=== PATIENT | female | born 1965 | race Caucasian/White ===

== ENCOUNTER 2019-03-04 10:21 | Outpatient (CLI) | payer MEDICAID ==
[2019-03-04 18:45] LABS: BASOPHILS # (AUTO) 0.1 10^3/uL (0.0-0.1); BASOPHILS % (AUTO) 0.7 %; EOSINOPHILS # (AUTO) 0.2 10^3/uL (0.0-0.7); EOSINOPHILS % (AUTO) 2.7 %; HGB - HEMOGLOBIN 13.5 g/dL (12.0-16.0); LYMPHOCYTES # (AUTO) 1.6 10^3/uL (1.5-3.5); LYMPHOCYTES % (AUTO) 20.8 %; MEAN CORPUSCULAR HEMOGLOBIN 28.8 pg (27.0-31.0); MEAN CORPUSCULAR HGB CONC 32.1 g/dL (32.0-36.0); MEAN CORPUSCULAR VOLUME 89.6 fL (81.0-99.0); MEAN PLATELET VOLUME 10.2 fL (7.9-10.8); MONOCYTES # (AUTO) 0.7 10^3/uL (0.0-1.0); MONOCYTES % (AUTO) 8.5 %; NEUTROPHILS # (AUTO) 5.1 10^3/uL (1.5-6.6); NEUTROPHILS % (AUTO) 66.9 %; PLT - PLATELET COUNT 451 10^3/uL (130-450); RED BLOOD COUNT 4.69 10^6/uL (4.20-5.40); RED CELL DISTRIBUTION WIDTH 13.2 % (12.0-15.0); WHITE BLOOD COUNT 7.7 x10^3/uL (4.8-10.8)
[2019-03-04 19:12] LABS: ALBUMIN 4.1 g/dL (3.2-5.5); ALBUMIN/GLOBULIN RATIO 1.3 (1.0-2.2); ALKALINE PHOSPHATASE 64 IU/L (42-121); ALT ALANINE AMINOTRANSFERASE 14 IU/L (10-60); AST ASPARTATE AMINOTRANSFERASE 17 IU/L (10-42); BILIRUBIN,TOTAL 1.1 mg/dL (0.2-1.0); BUN - BLOOD UREA NITROGEN 12 mg/dL (6-20); CALCIUM 8.8 mg/dL (8.5-10.3); CARBON DIOXIDE - CO2 25 mmol/L (21-32); CHLORIDE 98 mmol/L (101-111); CHOL/HDL RATIO 3.7 (<4.4); CHOLESTEROL 213 mg/dL; CREATININE 0.7 mg/dL (0.4-1.0); GFR - MDRD 88 (>89); GLUCOSE 105 mg/dL (70-100); HDL CHOLESTEROL 58 mg/dL; LDL CHOLESTEROL,CALCULATED 132 mg/dL; LDL/HDL RATIO 2.3 (<4.4); SODIUM 135 mmol/L (135-145); TOTAL PROTEIN 7.3 g/dL (6.7-8.2); VLDL CHOLESTEROL 23 mg/dL
[2019-03-04 19:18] LABS: RHEUMATOID FACTOR NEGATIVE (Negative)
[2019-03-04 19:21] LABS: CRP - C-REACTIVE PROTEIN < 1.0 mg/dL (0-1.0)
[2019-03-06 11:28] LABS: ANA SCREEN NEGATIVE (NEGATIVE)
== END 2019-03-04 23:59 | disposition home or self-care (01) ==
LOC: LAB.N 10:21
PROVIDERS: ATTEND Nurse Practitioner Gerontology
DX: Z00.00 Encounter for general adult medical examination without abnormal findings (principal); G89.29 Other chronic pain
CPT/HCPCS: 36415; 80053; 80061; 83721; 84443; 85025; 85651; 86038; 86140; 86200; 86430

== ENCOUNTER 2020-01-02 10:59 | Outpatient (CLI) | payer MEDICAID ==
--- NOTE | 2020-01-02 11:46 | XRAY Report ---
PROCEDURE: Ribs 2 View RT INDICATIONS: RIGHT SIDED RIB PAIN TECHNIQUE: 3 views of the right ribs were acquired. COMPARISON: None FINDINGS: Surgical changes and devices: None. Bones and chest wall: No fractures or dislocations. No suspicious bony lesions. Overlying soft tis sues appear unremarkable. Lungs and pleura: The visualized lung appears clear. No pleural effusions or pneumothorax are visib le. IMPRESSION: No right-sided rib fractures identified. Reviewed by: Johnny Mackey on 01/02/2020 11:44 AM [facility] Approved by: Johnny Mackey on 01/02/2020 11:44 AM [facility] Station ID: [id number]
== END 2020-01-02 23:59 | disposition home or self-care (01) ==
LOC: DI.WCP 10:59
PROVIDERS: ATTEND Physician Assistant
DX: R07.81 Pleurodynia (principal)

== ENCOUNTER 2020-02-04 13:08 | Outpatient (CLI) | payer MEDICAID ==
--- NOTE | 2020-02-04 13:58 | CT Report ---
PROCEDURE: CHEST WO INDICATIONS: RIB PAIN, RT TECHNIQUE: Noncontrast 5 mm thick sections acquired from the pulmonary apices to the posterior costophrenic angl es. 7 mm thick coronal and sagittal MIP reformats were then acquired. For radiation dose reduction, the following was used: automated exposure control, adjustment of mA and/or kV according to patient size. COMPARISON: None FINDINGS: Image quality: Excellent. Lungs and pleura: No acute air space opacities. 4 mm subpleural nodule within the right upper lobe l aterally (series 3 image 19). 2 mm diameter nodule within the left upper lobe laterally (series 3 perfecto ge 31). 3 mm nodule within the left upper lobe anteriorly (series 3 image 28). No pleural effusions o r pneumothorax. Central and peripheral airways are patent and normal in caliber. Mediastinum: Heart size is normal. No pericardial effusion. No mediastinal adenopathy by size crit eria. Thoracic aorta and central pulmonary arteries are normal in size. Esophagus is normal in lizet goran. No hiatal hernia. Bones and chest wall: Linear lucency traverses the right anterior sixth rib which demonstrates mild s urrounding callus. No vertebral body compression fractures. No axillary or supraclavicular adenopath y by size criteria. The thyroid is normal in size. Abdomen: Visualized upper abdominal solid organs and bowel loops appear normal in the absence of con trast. IMPRESSION: 1. Healing right anterior sixth rib fracture. 2. Bilateral pulmonary nodules; follow-up is recommended as below. Multiple nodules size: <6 mm * low risk patients: no routine follow-up * high risk patients: optional CT at 12 months Reviewed by: Nicanor Garnett MD on 02/04/2020 1:57 PM PST Approved by: Nicanor Garnett MD on 02/04/2020 1:57 PM PST Station ID: [id number]
== END 2020-02-04 13:09 | disposition home or self-care (01) ==
LOC: DI 13:08
PROVIDERS: ATTEND Physician Assistant
DX: S22.31XA Fracture of one rib, right side, initial encounter for closed fracture (principal); R91.8 Other nonspecific abnormal finding of lung field
CPT/HCPCS: 71250

== ENCOUNTER 2020-03-17 15:11 | Outpatient (CLI) | payer MEDICAID ==
[2020-03-17] MEDS ORDERED: GADOBUTROL 7.5 MMOL/7.5 ML VIAL ONE (16:16)
[2020-03-17] MEDS ORDERED: GADOBUTROL 7.5 MMOL/7.5 ML VIAL IVP ONE (16:52)
--- NOTE | 2020-03-17 17:50 | MRI Report ---
PROCEDURE: Brain W/WO INDICATIONS: VISION CHANGES, MIGRAINES CONTRAST: IV CONTRAST: Gadavist ml: 6 TECHNIQUE: Noncontrast axial T1 spin echo, axial T2 fast spin echo, sagittal and axial FLAIR, coronal T2 fast sp in echo, axial gradient echo, axial diffusion and ADC through the brain. After the administration of contrast, axial and coronal T1 spin echo with fat saturation through the brain. COMPARISON: None. FINDINGS: Image quality: Excellent. CSF spaces: Basal cisterns are patent. No extra-axial fluid collections. Ventricles are normal in size and shape. Brain: No midline shift. No intracranial bleeds or masses. No abnormal intracranial enhancement. There is cerebral volume loss for age. There is periventricular white matter chronic small vessel is chemic change. The brainstem appears normal. Diffusion-weighted images demonstrate no acute ischemi c insults. No chronic ischemic insults. Normal intravascular flow voids are present. Skull and face: Calvarial marrow is normal in signal. Orbits appear normal. Sinuses: Paranasal sinus disease is seen, including air-fluid levels within the maxillary sinuses. Mi lder paranasal sinus disease is seen elsewhere. No significant abnormal fluid can be seen within the mastoid air cells or within the middle ear cavities. IMPRESSION: No significant intracranial abnormality is seen to explain the presenting history of hea daches. No masses or abnormal enhancement can be seen. Paranasal sinus disease is noted, including air-fluid levels within the maxillary sinuses. Reviewed by: Ascencion Jin MD on 03/17/2020 4:49 PM [place] Approved by: Ascencion Jin MD on 03/17/2020 4:[address] [facility] Station ID: [id number]
== END 2020-03-17 15:12 | disposition home or self-care (01) ==
LOC: DI 15:11
PROVIDERS: ATTEND Physician Assistant
DX: G43.909 Migraine, unspecified, not intractable, without status migrainosus (principal); H53.9 Unspecified visual disturbance; J32.9 Chronic sinusitis, unspecified
CPT/HCPCS: 70553; A9585

== ENCOUNTER 2020-04-26 12:49 | Outpatient (CLI) | payer MEDICAID ==
--- NOTE | 2020-05-04 09:28 | Mammography Report ---
BILATERAL DIGITAL SCREENING MAMMOGRAM 3D/2D: 04/26/2020 CLINICAL: Routine screening. No prior exams were available for comparison. There are scattered fibroglandular elements in both br easts. No significant masses, calcifications, or other findings are seen in either breast. IMPRESSION: NEGATIVE There is no mammographic evidence of malignancy. A 1 year screening mammogram is recommended. This exam was interpreted at Station ID: [id number]. NOTE: For mammograms, a report in lay terms will be sent to the patient. Approximately 15% of breast malignancies will not be visualized mammographically. In the management of a palpable breast mass, a negative mammogram must not discourage biopsy of a clinically suspicious lesion. Electronically Signed By: Sedrick rubio/rachel:05/03/2020 13:55:58 ACR BI-RADS Category 1: Negative 3341F PARENCHYMAL PATTERN: (A) - The breast(s) demonstrate(s) scattered fibroglandular densities. BI-RADS CATEGORY: (1) - 1 RECOMMENDATION: (ANNUAL) - Recommend routine annual screening mammography. [id number] 1 year screening LATERALITY: (B)
== END 2020-04-26 12:50 | disposition home or self-care (01) ==
LOC: DI.N 12:49
PROVIDERS: ATTEND Internal Medicine
DX: Z12.31 Encounter for screening mammogram for malignant neoplasm of breast (principal)

== ENCOUNTER 2020-04-26 15:21 | Outpatient (CLI) | payer MEDICAID ==
--- NOTE | 2020-04-26 16:40 | DEXA Report ---
PROCEDURE: Dexa Spine and/or Hip INDICATIONS: POSTMENOPAUSAL TECHNIQUE: Dual energy x-ray absorptiometry (DXA) was performed on a [employer] System. Regions measur ed are the AP Spine, femoral neck, and if needed forearm. COMPARISON: None. FINDINGS: Lumbar Spine: Bone Mineral Density 1.248 g/cm/cm,T score 0.6, Left Hip: Bone Mineral Density 1.138 g/cm/cm,T score 1.0, Left Femoral Neck: Bone Mineral Density 1.06 to g/cm/cm, T score 1.2, (T score greater or equal to -1.0: NORMAL) (T score from -1.1 to -2.4: OSTEOPENIA) (T score less than or equal to -2.5 to: OSTEOPOROSIS) Impression: Normal bone mineral density. Patients with diagnosis of osteoporosis or osteopenia should have regular bone mineral density assess ment. For those eligible for Medicare, routine testing is allowed once every 2 years. Testing frequ ency can be increased for patients who have rapidly progressing disease or for those who are receivin g medical therapy to restore bone mass. Reviewed by: Thony Diaz MD on 04/26/2020 4:39 PM PDT Approved by: Thony Diaz MD on 04/26/2020 4:39 PM PDT Station ID: [id number]
== END 2020-04-26 15:22 | disposition home or self-care (01) ==
LOC: DI 15:21
PROVIDERS: ATTEND Internal Medicine
DX: Z78.0 Asymptomatic menopausal state (principal)

== ENCOUNTER 2020-06-04 12:39 | Outpatient (CLI) | payer MEDICAID ==
--- NOTE | 2020-06-07 13:08 | XRAY Report ---
* REVISED: THIS REPORT WAS ORIGINALLY SIGNED ON 06/04/2020 @ 1:41 PM. REPORT MOVED TO CORRECT ACCOUNT ON 06/08/2020. PROCEDURE: Shoulder 3 View RT INDICATIONS: RIGHT SHOULDER IMPINGEMENT SYNDROME TECHNIQUE: 3 views of the shoulder were acquired. COMPARISON: None. FINDINGS: Bones: No fractures or dislocations. No suspicious bony lesions. Visualized ribs appear intact. Glenohumeral and supraclavicular joints unremarkable. There is a 7 mm sclerotic focus in the humeral head consistent with a small bone island. Soft tissues: No suspicious soft tissue calcifications. 6 mm calcified granuloma noted in the right lung apex. Remainder the visualized right lung is clear. IMPRESSION: Small benign osteoma. No fracture or subluxation. Right apical calcified granuloma Reviewed by: Adonis Yost MD on 06/04/2020 1:41 PM PDT Approved by: Adonis Yost MD on 06/04/2020 1:41 PM PDT Station ID: [id number]
--- NOTE | 2020-06-07 13:09 | XRAY Report ---
* REVISED: THIS REPORT WAS ORIGINALLY SIGNED ON 06/04/2020 @ 1:43 PM. REPORT MOVED TO CORRECT ACCOUNT ON 06/08/2020. PROCEDURE: Knee 2 View BILAT INDICATIONS: GLF 03/2020- ASSESS FOR FRACTURE TECHNIQUE: 2 views of the bilateral knee(s) were acquired. COMPARISON: None. FINDINGS: Bones: No fractures or dislocations. No suspicious bony lesions. Soft tissues: No joint effusion. No suspicious soft tissue calcifications. IMPRESSION: Unremarkable bilateral knee radiographs. No evidence of fracture or joint effusion. Reviewed by: Adonis Yost MD on 06/04/2020 1:43 PM PDT Approved by: Adonis Yost MD on 06/04/2020 1:43 PM PDT Station ID: [id number]
== END 2020-06-04 12:40 | disposition home or self-care (01) ==
LOC: DI.N 12:39
PROVIDERS: ATTEND Internal Medicine
DX: D16.01 Benign neoplasm of scapula and long bones of right upper limb (principal); R91.8 Other nonspecific abnormal finding of lung field; M25.569 Pain in unspecified knee

== ENCOUNTER 2020-10-05 13:53 | Outpatient (CLI) | payer MEDICAID ==
--- NOTE | 2020-10-05 16:20 | MRI Report ---
PROCEDURE: Lumbar Spine W/O INDICATIONS: CERVICAL RADICULOPATHY, LUMAR RADICULOPATHY TECHNIQUE: Noncontrast sagittal T1 spin echo and T2 fast echo, sagittal STIR, axial T1 and T2 fast spin echo thr ough the lumbar spine. In cases with scoliosis, additional coronal T2 fast spin echo may be performe d. COMPARISON: None. FINDINGS: Image quality: Motion artifact is noted. Alignment and Curvature: There is mild grade 1 anterolisthesis seen at the L5-S1 level, it without a ssociated pars defects seen. Bone Marrow: Marrow is of normal overall signal. No acute vertebral body compression fractures. Spinal Cord: Conus medullaris terminates at the L1 level. Visualized cord demonstrates normal signa l and size. Paraspinous Soft Tissues: No paravertebral masses. T12-L1: Normal in appearance. L1-L2: The disc height and disc signal are well preserved. Mild disc bulge is seen. Partially bridging anterior osteophytes are seen. No significant neural foraminal or central canal narrowing ca n be seen. L2-L3: The disc height and disc signal are well preserved. Mild to moderate disc bulge is seen. Mi ld to moderate facet hypertrophy is seen. At least moderate bilateral neuroforaminal narrowing can be seen. No significant central canal narrowing is seen. L3-L4: Mild loss of disc height and disc signal are seen. Moderate disc bulge is seen, which is ecc entric to the left. At least moderate facet hypertrophy is seen. There is moderate to severe bilatera l neuroforaminal narrowing seen, left worse than right. Compression is seen upon the exiting nerve ro ots. Mild central canal narrowing is seen. L4-L5: Mild loss of disc height and disc signal are seen. Mild disc bulge is seen, with a mild cent ral/left disc protrusion. There is moderate right-sided and mild left-sided facet hypertrophy seen. T here is moderate bilateral neuroforaminal narrowing seen. No significant central canal narrowing is s een. There is deformity of the posterior elements seen, with the L5 spinous processes deviated to the left. L5-S1: Mild loss of disc height and disc signal are seen. No significant disc bulge is seen. Modera te facet hypertrophy is seen, right worse than left. There is moderate to severe left-sided and moder ate right-sided neuroforaminal narrowing seen. Compression is seen upon the exiting nerve roots. Th e central canal is widely patent. IMPRESSION: Multiple levels of lumbar spine degenerative change are seen, which are worst inferiorly . There is deformity seen of the posterior elements at the L4-L5 level. A developmental anomaly is susp ected, although differential diagnosis includes remote trauma. If clinically appropriate, a follow-up lumbar spine CT could be considered for further evaluation. Reviewed by: Ascencion Jin MD on 10/05/2020 3:19 PM [facility] Approved by: Ascencion Jin MD on 10/05/2020 3:19 PM [facility] Station ID: [id number]
--- NOTE | 2020-10-05 19:45 | MRI Report ---
PROCEDURE: Cervical Spine W/O INDICATIONS: CERVICAL RADICULOPATHY, TECHNIQUE: Noncontrast sagittal T1 spin echo and T2 fast spin echo, sagittal STIR, foraminal oblique sagittal T2 fast spin echo, and axial gradient echo or T2 fast spin echo through the cervical spine. COMPARISON: None. FINDINGS: Image quality: Limited by motion artifact Alignment and Curvature: There is normal bony alignment. Bone Marrow: Marrow demonstrates normal overall signal. Spinal Cord: Visualized spinal cord has normal size and signal. No cerebellar tonsillar herniation. Paraspinous Soft Tissues: No paravertebral masses. Prevertebral soft tissues are normal in thicknes s. C2-C3: Normal in appearance. C3-C4: Disc spaces preserved. Mild left hypertrophic uncovertebral joint results in mild left slim inal stenosis. No central or right foraminal stenosis. C4-C5: Disc height is preserved. No central or foraminal stenosis. C5-C6: Disc height is preserved. Small posterior disc bulge present without central or foraminal emiliana nosis. C6-C7: Disc height is preserved. No central or foraminal stenosis C7-T1: Disc height is preserved. No central or foraminal stenosis. IMPRESSION: Mild degenerative disc disease and arthropathy without significant central or foraminal stenosis Reviewed by: Adonis Yost MD on 10/05/2020 6:44 PM [facility] Approved by: Adonis Yost MD on 10/05/2020 6:44 PM [facility] Station ID: [id number]
== END 2020-10-05 13:54 | disposition home or self-care (01) ==
LOC: DI 13:53
PROVIDERS: ATTEND Internal Medicine
DX: M47.22 Other spondylosis with radiculopathy, cervical region (principal); M50.11 Cervical disc disorder with radiculopathy, high cervical region; M48.02 Spinal stenosis, cervical region; M47.26 Other spondylosis with radiculopathy, lumbar region; M51.16 Intervertebral disc disorders with radiculopathy, lumbar region; M48.061 Spinal stenosis, lumbar region without neurogenic claudication; M47.27 Other spondylosis with radiculopathy, lumbosacral region; M51.37 Other intervertebral disc degeneration, lumbosacral region; M48.07 Spinal stenosis, lumbosacral region